=== PATIENT | male | born 1975 | race Caucasian/White ===

== ENCOUNTER 2020-02-17 18:00 | Outpatient (CLI) | payer BC | END 2020-02-17 18:01 | disposition home or self-care (01) | LOC: SLEEPLAB 18:00 | PROVIDERS: ATTEND Family Medicine | DX: G47.33 Obstructive sleep apnea (adult) (pediatric) (principal); R53.83 Other fatigue; E66.9 Obesity, unspecified; R06.83 Snoring; R51 Headache; G47.00 Insomnia, unspecified; I10 Essential (primary) hypertension; R09.02 Hypoxemia; G47.10 Hypersomnia, unspecified; Z68.34 Body mass index [BMI] 34.0-34.9, adult | CPT/HCPCS: 95801 ==

== ENCOUNTER 2024-01-06 09:14 | Outpatient (CLI) | payer OTHER | END 2024-01-06 09:15 | disposition home or self-care (01) | LOC: SCSRAD 09:14 | PROVIDERS: ATTEND Physician Assistant | DX: M79.672 Pain in left foot (principal) ==